=== PATIENT | male | born 1950 | race Hispanic/Latino ===

== ENCOUNTER → 2021-01-06 | Outpatient (CLI) | payer MEDICARE, OTHER ==
[~2021-01-06] MED LIST: ALBUTEROL0.63 MG/3 NEB; AMIODARONE HCL200 MG PO; ATORVASTATIN CA10 MG PO; CLOPIDOGREL75 MG PO; FINASTERIDE5 MG PO; FLOMAX0.4 MG PO; FLONASE ALLERG9.9 ML INH; FUROSEMIDE40 MG PO; GLIMEPIRIDE2 MG PO; METFORMIN HCL500 M1 PO; METOPROLOL SUCC50 MG PO; OMEPRAZOLE40 MG PO; OXYBUTYNIN CHLOR5 MG PO; RAMIPRIL5 MG PO; SERTRALINE HCL50 MG PO; XARELTO20 MG PO
[2021-01-06 11:08] LABS: BASOPHILS % 0.4 % (0.0-1.0); EOSINOPHILS # (AUTO) 0.2 (0.0-0.4); EOSINOPHILS % 2.3 % (0.0-6.0); HEMATOCRIT 36.5 % (38.2-49.6); LYMPHOCYTES # (AUTO) 1.6 (1.0-3.2); LYMPHOCYTES % 19.9 % (18.0-39.1); MEAN CORPUSCULAR HEMOGLOBIN 30.8 pg (28-32); MEAN CORPUSCULAR HGB CONC 32.9 g/dL (31-35); MEAN CORPUSCULAR VOLUME 93.6 fL (81-99); MONOCYTES # (AUTO) 0.5 (0.2-0.8); NEUTROPHILS # (AUTO) 5.8 (2.1-6.9); PLATELET COUNT 231 x10e3/uL (140-360); RED CELL DISTRIBUTION WIDTH 13.1 % (11.7-14.4)
== END | disposition home or self-care (01) ==
LOC: RAD 14:20 → EDSTATUS 01-11 10:00
PROVIDERS: ATTEND Internal Medicine Gastroenterology
DX: Z01.810 Encounter for preprocedural cardiovascular examination (principal); Z01.812 Encounter for preprocedural laboratory examination; Z20.822 Contact with and (suspected) exposure to COVID-19; R19.5 Other fecal abnormalities; Z53.8 Procedure and treatment not carried out for other reasons
CPT/HCPCS: 36415; 85025; 93005; U0002